=== PATIENT | male | born 1990 | race Hispanic/Latino ===

== ENCOUNTER 2017-07-24 14:06 | Emergency (ER) | payer SELFPAY ==
[~2017-07-24] VITALS: Ht 170.2 cm; Wt 77.1 kg
[2017-07-24 14:17] VITALS: BP 135/78
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
== END 2017-07-24 17:46 ==
LOC: ERH 14:06
DX: S93.402A Sprain of unspecified ligament of left ankle, initial encounter (principal); V03.90XA Pedestrian on foot injured in collision with car, pick-up truck or van, unspecified whether traffic or nontraffic accident, initial encounter; Y93.01 Activity, walking, marching and hiking; Y92.9 Unspecified place or not applicable
CPT/HCPCS: 73590-LT; 73610-LT